=== PATIENT | female | born 1970 | race Caucasian/White ===

== ENCOUNTER 2016-12-06 15:52 | Emergency (ER) | payer BC ==
[~2016-12-06] VITALS: Wt 68.0 kg
[2016-12-06] MEDS ORDERED: ONDANSETRON (ODT) 4 MG TAB ODT STA (16:41)
--- NOTE | 2016-12-06 16:53 | ERD ---
ER Documentation Chief Complaint Date/Time DATE: 12/06/16 TIME: 16:51 Chief Complaint sent by pmd r/o shoulder fx, slip and fall yest HPI Pleasant 46-year-old female history of fibromyalgia who presents with left shoulder pain status post mechanical fall. Yesterday she states that she slipped on a soapy floor and fell onto an extended left upper extremity. The patient now has moderate to severe throbbing left shoulder pain that is worse with abduction and range of motion. She denies hitting her head or losing consciousness, no neck pain. ROS All systems reviewed and are negative except as per history of present illness. Medications Home Meds Active Scripts Ibuprofen* (Motrin*) 800 Mg Tab, 800 MG PO Q6H Y for PAIN AND OR ELEVATED TEMP, #30 TAB Prov:JEAN-PIERRE MODI MD 12/06/16 Ondansetron (Ondansetron Odt) 4 Mg Tab.rapdis, 4 MG PO Q6H Y for NAUSEA AND/OR VOMITING, #10 TAB Prov:JEAN-PIERRE MODI MD 12/06/16 Hydrocodone/Acetaminophen (Hayward 10-325 Tablet) 1 Each Tablet, 1 TAB PO Q6H Y for PAIN, #7 TAB Prov:JEAN-PIERRE MODI MD 12/06/16 Allergies Allergies: Coded Allergies: No Known Drug Allergy (Verified Allergy, Unknown, 07/01/09) PMhx/Soc Medical and Surgical Hx: pt denies Medical Hx, pt denies Surgical Hx Hx Alcohol Use: No Smoking Status: Never smoker FmHx Family History: No diabetes Physical Exam Vitals Vital Signs Date Time Temp Pulse Resp B/P Pulse Ox O2 Delivery O2 Flow Rate FiO2 12/06/16 16:01 98.0 70 20 155/76 100 Physical Exam General: Well developed, well nourished, no acute distress Head: Normocephalic, atraumatic. Eyes: Pupils equally reactive, EOM intact ENT: Moist mucous membranes Neck: Supple, no lymphadenopathy, No midline tenderness, deformities, step-offs to the cervical spine, full active and passive range of motion without midline pain. Respiratory: Lungs clear bilaterally, no distress Cardiovascular: RRR, no murmurs, rubs, or gallops Abdominal: Soft, non-tender, non-distended, no peritoneal signs : Deferred MSK: Soft tissue swelling and tenderness to left shoulder with limited range of motion secondary to pain. Radial, median, ulnar, axillary nerves intact. 2+ radial ulnar pulses. Neurologic: Alert and oriented, moving all extremities, normal speech, no focal weakness, no cerebellar signs Skin: No rash Psych: Normal mood Results 24 hrs Current Medications Medications (Trade) Dose Ordered Sig/Alyce Route PRN Reason Start Time Stop Time Status Last Admin Dose Admin Acetaminophen/ Hydrocodone Bitart (Hayward (10/325)) 1 tab ONCE ONCE PO 12/06/16 17:00 12/06/16 17:01 DC 12/06/16 16:53 Ondansetron HCl (Zofran Odt) 4 mg ONCE STAT ODT 12/06/16 16:41 12/06/16 16:43 DC 12/06/16 16:52 Procedures/MDM EKG, MONITORS, & DIAGNOSTIC IMAGING: X-ray left shoulder: I reviewed and interpreted multiple views of the x-ray Bones: No acute fracture dislocation or subluxation Soft tissue: No evidence of foreign body PROCEDURES: Splint Application Note: Splint type: Sling Extremity: Left upper extremity Indication: Shoulder injury The patient was consented at bedside prior to splint application and states understanding of risks, benefits, and alternatives. The patient was neurovascularly intact prior to and status post application of the splint. The patient tolerated the procedure well and there were no complications. MEDICAL DECISION MAKING: The patient had a mechanical fall on outstretched arm now with proximal shoulder pain. This is most consistent with likely proximal humerus fracture. Low concern for dislocation. No head trauma or loss of consciousness. The patient does not meet high-risk criteria and based on NEXUS cervical spine criteria there is no indication for cervical spine imaging at this time. X-ray imaging is indicated. ER COURSE: Patient immobilized as documented above. Pain medication provided. X-ray imaging shows no evidence of acute fracture. The patient was placed in a sling for comfort but advised that early range of motion is passed. We discussed the risks of frozen shoulder and discussed range of motion exercises. Patient verbalizes understanding. Consider possible AC sprain. Outpatient MRI imaging may be necessary or physical and rehab therapy. I kept the patient and/or family informed of laboratory and diagnostic imaging results throughout the emergency room course. DISPOSITION PLAN: We discussed follow up with the patient's primary care doctor within 24 to 48 hours as needed. We also discussed return to the emergency room for worsening symptoms or worsening condition. Discharge Medications: Hayward, Zofran, Motrin We discussed the use of narcotics including avoidance of operating heavy machinery and driving as well as its addictive properties. Departure Diagnosis: Primary Impression: Contusion of left shoulder Encounter type: initial encounter Qualified Code: S40.012A - Contusion of left shoulder, initial encounter Condition: JEAN-PIERRE Canela MD Dec 06, 2016 16:53
[2016-12-06] MEDS ORDERED: HYDROCODONE/APAP (10/325) TAB PO ONE (17:00)
--- NOTE | 2016-12-06 17:32 | RADRPT ---
PROCEDURE: XR left shoulder. CLINICAL INDICATION: Fall. Pain. TECHNIQUE: AP, Internal and external rotation views of the left shoulder were performed. COMPARISON: None. FINDINGS: No fracture or dislocation. Humeral head articulates normally with the glenoid. The scapula, acrom ioclavicular joint, and thoracic structures are unremarkable. IMPRESSION: Unremarkable left shoulder. RPTAT:AAJJ Girish Duff Physician Date Time Electronically viewed and signed by Physician Dean on 12/06/2016 17:31 LUCILA/
[2016-12-06] MEDS ORDERED: ONDA4TAB14 PO (17:35)
[2016-12-06] MEDS ORDERED: IBUP800T25 PO (17:35)
[2016-12-06] MEDS ORDERED: HYDR-902 PO (17:35)
== END 2016-12-06 17:50 | disposition home or self-care (01) ==
LOC: FTE 15:52
DX: S40.012A Contusion of left shoulder, initial encounter (principal); W01.0XXA Fall on same level from slipping, tripping and stumbling without subsequent striking against object, initial encounter; Y92.9 Unspecified place or not applicable
CPT/HCPCS: 73030